=== PATIENT | female | born 1970 | race Caucasian/White ===

== ENCOUNTER 2024-02-21 06:03 | Observation (INO) ==
--- NOTE | 2024-02-17 15:19 | Anesthesiology Consultation ---
Date of Service February 17, 2024 Assessment & Plan (1) Encounter for pre-operative examination: - check CBC with diff, BMP, coags, type and screen, and EKG STAT am DOS. Fluid orders to anesthesiologist review of BMP DOS. - Tatiana with surgeon's office advised that Dr. Madden does not feel the testing on original order is needed given patient's health status. I advised above testing will be needed from anesthesia/[facility] standpoint and will therefore be done DOS. Surgeon's office is faxing over a new order. - Per quantitative analyst marketing on 02/04/24: No known infectious disease contacts, current infectious disease symptoms in past 10 days or COVID positive test result in the past 30 days. Chart Review Chart Review: Acceptable Risk for Surgery and Patient NOT seen in Pre Admission Testing History Surgery Operation Date: 02/21/24 07:45 Proposed Procedures p C6-C7 Anterior Cervical Discectomy and Fusion, Spinal Cord Monitoring - Jim Madden, DO Height/Weight Height: 5 ft 3 in Weight: 57.153 kg Allergies Allergy/AdvReac Type Severity Reaction Status Date / Time latex Allergy Unknown Rash Verified 02/04/24 13:33 Medications Home Medications Medication Instructions Recorded Confirmed Last Taken albuterol sulfate 90 mcg/actuation 2 puff inhalation Q6H PRN sob 01/03/24 02/04/24 Unknown aerosol inhaler (Ventolin HFA) gabapentin 100 mg capsule 200 mg PO HS 01/03/24 02/04/24 Unknown ibuprofen 600 mg tablet 600 mg PO BID 01/03/24 02/04/24 Unknown cyclobenzaprine 5 mg tablet 5 mg PO TID PRN muscle spasms 02/04/24 02/04/24 Unknown Past Medical History Medical History Asthma well controlled, rare use of rescue inhaler History of COVID-19 (2021) no hosp; resolved HTN (hypertension) "intermittent" Past Family History Family History Other No family history of adverse response to anesthesia Past Surgical History Surgical History H/O cone biopsy of cervix H/O foot surgery right foot History of hysterectomy Hx of colonoscopy Hx of tubal ligation Social History Smoking Status: Never smoker Do You Dip or Chew Tobacco: No Hx Alcohol Use: Yes alcohol intake frequency: a few times a week Hx Substance Use: No substance use type: does not use
[2024-02-21 06:41] LABS: Basophils # (auto) 0.04 K/uL (0.00-0.20); Basophils % (auto) 0.8 %; Eosinophils # (auto) 0.14 K/uL (0.00-0.50); Eosinophils % (auto) 2.9 %; Hematocrit (blood only) 42.9 % (37.0-47.0); Hemoglobin 14.8 g/dl (12.0-16.0); Immature Granulocytes # (auto) 0.01 K/uL (0.01-0.20); Immature Granulocytes % (auto) 0.2 %; Lymphocytes # (auto) 2.32 K/uL (1.20-3.40); Lymphocytes % (auto) 47.3 %; Mean Corpuscular Hemoglobin 30.3 pg (25.0-34.0); Mean Corpuscular Hgb Conc 34.5 g/dL (32.0-36.0); Mean Corpuscular Volume 87.7 fL (80.0-100.0); Monocytes # (auto) 0.43 K/uL (0.11-0.59); Monocytes % (auto) 8.8 %; Neutrophils # (auto) 1.97 K/uL (1.40-6.50); Platelet Count 306 K/uL (130-400); RDW Coefficient of Variation 12.2 % (11.5-14.5); RDW Standard Deviation 38.9 fL (36.4-46.3); Red Blood Count 4.89 M/uL (4.20-5.40); White Blood Count 4.91 K/ul (4.8-10.8)
[2024-02-21] MEDS ORDERED: DEXAMETHASONE SOD INJ 4 MG/ML VIAL ONE (06:47)
[2024-02-21] MEDS ORDERED: PROPOFOL IV EMULSION 10 MG/ML 20 ML VIAL IV ONE (06:47)
[2024-02-21] MEDS ORDERED: LIDOCAINE 2% 2 ML VIAL/AMP(20MG/ML) INFIL ONE (06:47)
[2024-02-21] MEDS ORDERED: MIDAZOLAM HCL 1 MG/ML 2ML VIAL ONE (06:47)
[2024-02-21] MEDS ORDERED: GLYCOPYRROLATE 0.2 MG/ML VIAL ONE ×2 (06:47→10:05)
[2024-02-21] MEDS ORDERED: fentaNYL citrate PF 100 MCG/2 ML VIAL ONE (06:47)
[2024-02-21] MEDS ORDERED: ONDANSETRON INJ 2 MG/ML 2 ML VIAL ONE ×2 (06:47→08:25)
[2024-02-21] MEDS ORDERED: NEOSTIGMINE METHYLSULFATE 1 MG/ML 10ML VIAL ONE (06:47)
[2024-02-21 07:01] LABS: BUN Creatinine Ratio 14.1 (10-20); Calcium 9.6 mg/dl (8.6-10.3); Creatinine Clr Calc Pharmacy 62.6 ml/min; Est GFR (Non-African American) 77.7 ml/min; Potassium 3.4 mmol/L (3.5-5.1)
[2024-02-21] MEDS: ACETAMINOPHEN 500 MG TAB PO SCH (07:03)
[2024-02-21] MEDS: LR 60ML/HR IV SCH (07:03)
[2024-02-21] MEDS: GABAPENTIN 900 MG DOSE PO SCH (07:04)
[2024-02-21] MEDS: CeleBREX 200 MG CAP PO SCH (07:04)
[2024-02-21] MEDS ORDERED: HYDROmorphone INJ 1 MG/ML SYRINGE IV PRN ×2 (07:05→10:37)
[2024-02-21] MEDS ORDERED: PROMETHAZINE HCL 6.25 MG in SODIUM CHLORIDE 0.9% 50 ML IV PRN (07:05)
[2024-02-21] MEDS ORDERED: ONDANSETRON INJ 2 MG/ML 2 ML VIAL IV PRN ×2 (07:05→10:37)
[2024-02-21] MEDS ORDERED: ATROPINE SULFATE 0.1 MG/ML 10ML SYR IV PRN (07:05)
[2024-02-21] MEDS ORDERED: fentaNYL citrate PF 100 MCG/2 ML VIAL IV PRN (07:05)
[2024-02-21] MEDS ORDERED: ePHEDrine sulfate 50 MG/ML AMP IV PRN (07:05)
[2024-02-21 07:17] LABS: Partial Thromboplastin Ratio 0.9; Partial Thromboplastin Time 25 Seconds (21-31); Prothrombin Time 10.6 Seconds (9.0-12.0)
--- NOTE | 2024-02-21 07:36 | History & Physical Bridge Note ---
Date of Service February 21, 2024 History & Physical Bridge Note I have examined the patient, reviewed the History & Physical and in the interval since the performance of the History & Physical I have noted the following changes of clinical significance: no changes noted
--- NOTE | 2024-02-21 07:38 | History & Physical Report ---
Date of Service February 21, 2024 Assessment & Plan (1) Herniation of cervical intervertebral disc with radiculopathy: Plan: Anterior cervical discectomy and fusion see 6 to C7 History of Present Illness Chief Complaint: Neck and arm pain Primary Care Provider: DELISA WARE This is a 54-year-old female presents chronic persistent neck and arm pain after failing course of nonoperative care is here for surgical invention. Allergies Allergy/AdvReac Type Severity Reaction Status Date / Time latex Allergy Intermediate Rash Verified 02/21/24 06:37 Home Medications Medication Instructions Recorded Confirmed Type albuterol sulfate 90 mcg/actuation 2 puff inhalation Q6H PRN sob 01/03/24 02/21/24 History aerosol inhaler (Ventolin HFA) gabapentin 100 mg capsule 200 mg PO HS 01/03/24 02/21/24 History ibuprofen 600 mg tablet 600 mg PO BID 01/03/24 02/21/24 History cyclobenzaprine 5 mg tablet 5 mg PO TID PRN muscle spasms 02/04/24 02/21/24 History Past Med/Surg History Problem List (Updated 02/21/24 @ 07:37 by Jim Madden DO) Herniation of cervical intervertebral disc with radiculopathy Encounter for pre-operative examination Prolapsed cervical intervertebral disc Medical History Asthma well controlled, rare use of rescue inhaler History of COVID-19 (2021) no hosp; resolved HTN (hypertension) "intermittent" Surgical History H/O cone biopsy of cervix H/O foot surgery right foot History of hysterectomy Hx of colonoscopy Hx of tubal ligation Family History Other No family history of adverse response to anesthesia Social History Smoking Status: Never smoker Second Hand Exposure: No; Do You Dip or Chew Tobacco: No; Tobacco Cessation Education Requested by Patient: No Hx Alcohol Use: Yes Hx Substance Use: No Preferred Language: [place]at[place] Communication Ability: Effective Visual Impairment: No Limitations Hearing Ability: Normal Gear Technician Required: No Beliefs That Will Affect Care: None marital status: Current Living Situation: Spouse current occupational status: employed 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
[2024-02-21] MEDS: ceFAZolin 2000MG 2,000 MG/15 ML SYR IV SCH (08:31)
[2024-02-21] MEDS: ceFAZolin 330 MG/ML 1 GM VIAL ONE (08:32)
[2024-02-21] MEDS: FLOSEAL HEMOSTATIC MATRIX 10ML TOP ONE (08:32)
[2024-02-21] MEDS ORDERED: SUGAMMADEX SODIUM 200 MG/2 ML VIAL IV ONE (08:38)
--- NOTE | 2024-02-21 08:57 | Operative Report ---
Post Operative Report Pre & Post Diagnosis Operation Date: 02/21/24 07:45 Pre-Op Diagnosis: Cervical Disc Disease, Foraminal Stenosis of Cervi Post-Op Diagnosis: Cervical Disc Disease, Foraminal Stenosis of Cervi I identified the patient and participated in the time-out.: Yes Procedure Operation Date: 02/21/24 07:45 Actual Procedures #1 anterior cervical discectomy with bilateral foraminotomies C6-C7. #2 anterior cervical arthrodesis C6-C7. #3 placement of 8 mm spiral cage filled with os design bone graft to C6-C7. #4 application of K2 M plate and screws across C6-C7. Surgeon Jim Madden, Reporting Developer Kenyatta Salinas Estimated Blood Loss 10 Findings Consistent with Post-Op Diagnosis Specimens None Indications This is a 54-year-old female who presents problems diagnosis of failed course of nonoperative care she is here for surgical invention. Description of Procedure Patient was met with identified informed consent obtained. Patient was then taken to the operative suite underwent ablation placed in the supine position on the Ender table head Marsh lateral. All bony prominences well-padded eyes inspected to ensure no external pressure placed upon the. This point the anterior cervical spine was prepped and draped no sterile fashion. The assistance of fluoroscopy notified the C6-C7 disc space. A transverse incision was placed along the right anterior aspect the cervical spine overlying the region. Blunt dissection with the assistance of bipolar electrocautery is then performed down to expose the anterior cervical spine at C6-7. Self-retaining tractors placed. Then formed a thick discectomy of C6-C7 out to the uncovertebral joints bilaterally. [place] distracting pins were utilized to assist in visualization. Removed all posterior annular fibers longitudinal ligament bilateral foraminotomies were performed. Endplates burred to subcortical bleeding bone and 8 mm spiral cage filled with os design bone graft tapped in position. Distracting and pressors removed. All anterior osteophytes were reduced with cortical surface and a K2 M plate and screws applied with the assistance of fluoroscopy. The incision was then copiously irrigated explored to ensure no damage to surrounding structures or remaining bleeding. 10 round ILIANA drain inserted. The incision was then closed with 2 Vicryl in the fascia and 4 Monocryl for final skin closure. Steri-Strips sterile dressing placed. Patient waken taken the PACU stable condition. Please note spinal cord monitoring was utilized at the procedure no changes noted. Lastly Kenyatta Salinas was present at the entire surgery by the patient positioning complex portion of the surgery and possible closure. I attest to the content of the Intraoperative Record and any orders documented therein. Any exceptions are noted below.
[2024-02-21] MEDS ORDERED: ROCURONIUM BROMIDE 10 MG/ML 5 ML VIAL IV ONE (09:57)
[2024-02-21] MEDS ORDERED: METOCLOPRAMIDE HCL INJ 5 MG/ML 2 ML VIAL IV PRN (10:37)
[2024-02-21] MEDS ORDERED: HYDROmorphone INJ 0.5 MG/0.5 ML SYR IV PRN (10:37)
[2024-02-21] MEDS ORDERED: PROMETHAZINE HCL 12.5 MG in SODIUM CHLORIDE 0.9% 50 ML IV PRN (10:37)
[2024-02-21] MEDS ORDERED: bisacodyL 10 MG SUPP PR PRN (10:37)
[2024-02-21] MEDS ORDERED: ONDANSETRON 4 MG OD TAB PO PRN (10:37)
[2024-02-21] MEDS ORDERED: DO NOT ADMINISTER PNEUMOCOCCAL VACCINE PRN (10:37)
[2024-02-21] MEDS ORDERED: LORazepam 0.5 MG TAB PO PRN (10:37)
[2024-02-21] MEDS ORDERED: FAMOTIDINE 20 MG TAB PO PRN (10:37)
[2024-02-21] MEDS ORDERED: SOD PHOSPHATE/SOD BIPHOSPHATE ENEMA 132 ML BTL PR PRN (10:37)
[2024-02-21] MEDS ORDERED: MAGNESIUM HYDROXIDE SUSP 30 ML UDC PO PRN (10:37)
[2024-02-21] MEDS ORDERED: hydrOXYzine HCl 25 MG TAB PO PRN (10:37)
[2024-02-21] MEDS ORDERED: ACETAMINOPHEN 500 MG TAB PO PRN (10:37)
[2024-02-21] MEDS ORDERED: oxyCODONE HCL IR 5 MG TAB (IMMEDIATE RELEASE) PO PRN (10:37)
[2024-02-21] MEDS ORDERED: diphenhydrAMINE Capsule 25 MG CAP PO PRN (10:37)
[2024-02-21] MEDS ORDERED: LORazepam 0.5 MG in SYRINGE 0.25 ML IV PRN (10:37)
[2024-02-21] MEDS ORDERED: RACEPINEPHRINE 2.25% NEBU SOLN 0.5 ML VIAL INH PRN (10:37)
[2024-02-21] MEDS ORDERED: ALUMINUM/MAGNESIUM SUSP 30 ML UDC PO PRN (10:37)
[2024-02-21] MEDS ORDERED: NALOXONE HCL 0.4 MG/1 ML VIAL/CARP IV PRN (10:37)
[2024-02-21] MEDS ORDERED: DO NOT ADMINISTER FLU VACCINE PRN (10:37)
[2024-02-21] MEDS ORDERED: dexAMETHasone 8 MG in SYRINGE 0 ML IV PRN (10:37)
--- NOTE | 2024-02-21 10:45 | Fluoroscopy Report ---
FL cervical 2-3V CLINICAL HISTORY: C6-C7 ACDF TECHNIQUE: 2 views were obtained with the C-arm in the OR with the above procedure. Total fluoroscopy time was 14.3 seconds. Radiation dose was 1.3 mGy. Comparison: None available at the time of this dictation. FINDINGS/IMPRESSION: Intraoperative images were obtained of ACDF placement at C6-C7. Please correlate with intraoperative fluoroscopy and operative report. ACT 112: Negative or not required by law. Electronically signed by: Erasmo Cao M.D. 02/21/2024 10:44 AM
[2024-02-21] MEDS: ACETAMINOPHEN 1,000 MG/100 ML VIAL IV PRN (11:05)
[2024-02-21] MEDS: LACTATED RINGER'S 1,000 ML IV SCH (11:05)
[2024-02-21] MEDS: dexAMETHasone 6 MG in SYRINGE 0 ML IV SCH (11:35)
--- NOTE | 2024-02-21 11:42 | Electrocardiogram Report ---
Test Reason : Blood Pressure : / mmHG Vent. Rate : 084 BPM Atrial Rate : 084 BPM P-R Int : 160 ms QRS Dur : 086 ms QT Int : 464 ms P-R-T Axes : 080 073 089 degrees QTc Int : 548 ms Normal sinus rhythm Left atrial enlargement Possible Old Septal infarct Prolonged QT Abnormal ECG No previous ECGs available Confirmed by Alec Leal ([id number]) on 02/21/2024 11:42:26 AM Referred By: Jim Madden Confirmed By:Alec Leal
[2024-02-21] MEDS ORDERED: ALBUTEROL HFA 8 GM INHALER INH PRN (12:46)
--- NOTE | 2024-02-21 13:19 | Anesthesiology Progress Note ---
Date of Service February 21, 2024 Anesthesia Post Procedure Vital Signs Vital Signs: Temp Pulse Pulse Resp BP BP Pulse Ox 02/21/24 12:36 87 16 132/81 98 02/21/24 11:35 79 16 130/77 99 02/21/24 11:32 79 14 99 02/21/24 11:04 79 14 122/73 98 02/21/24 10:43 02/21/24 10:30 36.5 C 76 14 143/86 H 100 02/21/24 10:20 36.1 C L 63 17 123/72 98 02/21/24 10:10 66 15 129/72 97 02/21/24 10:00 69 12 124/71 98 02/21/24 09:50 77 18 129/73 99 02/21/24 09:40 82 24 127/74 99 02/21/24 09:30 68 10 L 114/70 98 02/21/24 09:20 81 10 L 132/75 100 02/21/24 09:10 36.1 C L 77 14 128/67 100 02/21/24 06:39 36.8 C 87 18 156/112 H 100 Pulse Ox O2 Del Method O2 Del Method O2 Flow Rate FiO2 02/21/24 12:36 Room Air 02/21/24 11:35 Room Air 02/21/24 11:32 Room Air 21 02/21/24 11:04 Room Air 02/21/24 10:43 97 Room Air 02/21/24 10:30 Room Air 02/21/24 10:20 Room Air 02/21/24 10:10 Room Air 02/21/24 10:00 Room Air 02/21/24 09:50 Room Air 02/21/24 09:40 Room Air 02/21/24 09:30 Room Air 02/21/24 09:20 Oxymask 4 02/21/24 09:10 Oxymask 10 02/21/24 06:39 Room Air Pain Intensity Right Arm: Pain Intensity: 2 Neck: Pain Intensity: 1 Transfer of Care Handoff Completed per policy Notes Mental Status: alert / awake / arousable and participated in evaluation Patient Amnestic to Procedure: Yes Nausea / Vomiting: adequately controlled Pain: adequately controlled Airway Patency, RR, SpO2: stable & adequate BP & HR: stable & adequate Hydration State: stable & adequate Anesthetic Complications: no major complications apparent and Pt Satisfied with anesthetic care
[2024-02-21] MEDS: ceFAZolin 1000MG 1,000 MG/7.5 ML SYR IV SCH (16:22)
[2024-02-21] MEDS: GABAPENTIN 100 MG CAP PO SCH (20:17)
[2024-02-21] MEDS: DOCUSATE SODIUM/SENNA 50/8.6MG TAB PO SCH (20:18)
[2024-02-22] MEDS: POLYETHYLENE (MIRALAX) 17 GM PACK PO SCH (06:16)
[2024-02-22] MEDS: traMADol HCL 50 MG TABLET PO PRN (09:53)
--- NOTE | 2024-02-22 09:58 | Discharge Summary ---
Date of Service February 22, 2024 Admission HPI Per Admitting Provider This is a 54-year-old female presents chronic persistent neck and arm pain after failing course of nonoperative care is here for surgical invention. Principal Diagnosis Cervical discrimination with radiculopathy Discharge Data Allergies Allergy/AdvReac Type Severity Reaction Status Date / Time latex Allergy Intermediate Rash Verified 02/21/24 06:37 Procedures Performed Operation Date: 02/21/24 07:45 Actual Procedures p C6-C7 Anterior Cervical Discectomy and Fusion, Spinal Cord Monitoring(Not Applicable) - Jim Madden DO Ordered Studies 02/21/24 [place] cervical 2-3V Routine Hospital Course (1) Herniation of cervical intervertebral disc with radiculopathy: Patient 1 anterior cervical discectomy and fusion tolerated as well as taken to orthopedic for postoperative. Postop day #1 she was swallowing well. No hoarseness. Arm symptoms improved. Excellent strength testing. ILIANA drain decreasing appropriately. Subsequently discharged home. Discharge orders instructions from the chart for further review. Total Time Total Time Spent Total Time Spent (In Minutes): 20 minutes Discharge Plan Discharge Items Patient Disposition: Home - Self-Care Reason For Visit: Cervical Disc Disease, Foraminal Stenosis of Cervi Discharge Diagnosis: Cervical spinal stenosis with radiculopathy Activity: As commented below Non-emergency contact: Primary Care Provider Call non-emergency contact if: you have any medication questions Follow-up/Referrals: DELISA WARE M.D. [Primary Care Provider] - Diet: Regular Addtl Attending Provider Instructions: ACTIVITY RECOMMENDATIONS: SELF CARE INSTRUCTIONS AFTER CERVICAL FUSIONS 1. No smoking. Smoking drastically decreases the chance of a solid fusion. 2. No bending, lifting more than 5 pounds, or twisting (roll like a log when turning in bed). 3. You may shower 3 days after surgery. Thoroughly dry wound. Do not soak in the tub. 4. Cervical collar: Must be worn at all times including sleeping. You may remove the brace only to bath, eat and if you are sitting in a recliner. 5. Please walk as much as you can for exercise. Gradually increase the distance that you walk as your endurance increases. SPECIAL CARE INSTRUCTIONS: VERY IMPORTANT TO READ AND REVIEW A. Do not take any anti-inflammatory medications (i.e. Indocin, Advil, Aspirin, Naprosyn, Aleve, Motrin, etc.) as these may inhibit the chance of a solid fusion. Tylenol is okay to take. B. Your surgical incision has been closed with a cosmetic suture under the skin that will dissolve in about 6 weeks. In 14 days, you can use a pair of clean scissors and cut the suture that is left outside of the skin at the ends of your incision. C. Complications are uncommon, but please contact us if you have any signs or symptoms of: 1. wound infection (fever higher than 102.5 degrees F, redness, separation of wound, drainage, or increasing pain from the incision) 2. blood clots in legs (pain, swelling, redness and warmth in legs) 3. urinary tract infection (fever higher than 102.5 degrees, burning upon urination or increased frequency of urination) 4. nerve problems (inability to walk on your toes or heels, numbness, loss of bowel or bladder control) 5. any other symptoms that concern you. D. Please call the office at if you have any concerns or questions about your operation or recovery. MANAGING PAIN AFTER SPINAL SURGERY 1. Narcotic medication is intended for short-term use and will be provided for surgical pain. Surgical pain usually lasts for a period of 4-6 weeks. Narcotic medication includes Percocet, Vicodin, Darvocet, Tylenol #3 or Lortab. 2. Longer-term pain is more appropriately treated with non-narcotic medication such as Tylenol ES. 3. Muscle spasm is not appropriately treated with narcotics. Muscle relaxers such as Soma, Flexeril or Skelaxin can be used along with Tylenol ES. 4. Remember that we all live with some "aches and pains". This is not unusual or uncommon after an injury or as we get older. 5. We will provide appropriate medication within the normal guidelines of their prescribed use. We will also be very cautious and aware of potential abuse and extended duration of patients' medication needs. 6. Please allow 2-3 days to process refills. Prescriptions will not be mailed but must be picked up at the office. FOLLOW UP VISIT: Keep your scheduled follow-up appointment. Any questions, please call the office at . Pending Studies at Discharge: No Stand-Alone Forms: My [facility], Smoking Cessation Medications and DC Order Prescriptions: New tramadol 50 mg tablet 50 mg PO Q6H PRN (Reason: pain, moderate) Qty: 20 0RF oxycodone 5 mg tablet 5 mg PO Q6H PRN (Reason: pain) Qty: 20 0RF Continued gabapentin 100 mg capsule 200 mg PO HS albuterol sulfate [Ventolin HFA] 90 mcg/actuation HFA aerosol inhaler 2 puff inhalation Q6H PRN (Reason: sob) cyclobenzaprine [Flexeril] 5 mg Tablet 5 mg PO TID PRN (Reason: muscle spasms ) Discontinued ibuprofen 600 mg tablet 600 mg PO BID Discharge Orders: Discharge Order (Routine); Ordered 02/22/24 Ordered By: Jim Madden Admission Data Admit Date/Time: 02/21/24 08:59 Attending Provider: Jim Madden Admit Provider: Jim Madden Primary Care Provider: DELISA WARE
== END 2024-02-22 10:43 | disposition home or self-care (01) ==
LOC: ASU 06:03 → 3E 06:03